=== PATIENT | female | born 1990 | race Caucasian/White ===

== ENCOUNTER → 2023-05-06 | Outpatient (CLI) | payer OTHER | LOC: MHCPAIN 08:24 | DX: M51.26 Other intervertebral disc displacement, lumbar region (principal); M47.817 Spondylosis without myelopathy or radiculopathy, lumbosacral region | CPT/HCPCS: G0463 ==

== ENCOUNTER → 2023-05-20 | Outpatient (CLI) | payer OTHER ==
[~2023-05-20] MED LIST: Atropine 1 MG/10 ML SYRINGE IV ONE; Glycopyrrolate 0.2 MG/ML 1 ML VIAL ONE; Iohexol 300 - 10 ML VIAL ONE; Lidocaine PF 2% (20 MG/ML) 2 ML VIAL ONE; ePHEDrine 50 MG/10 ML VIAL IV ONE
== END ==
LOC: MHCPAIN 12:44
DX: M54.16 Radiculopathy, lumbar region (principal)
CPT/HCPCS: J0461; J1100; Q9967

== ENCOUNTER → 2023-06-17 | Outpatient (CLI) | payer OTHER | LOC: MHCPAIN 09:41 | DX: M51.26 Other intervertebral disc displacement, lumbar region (principal); M47.817 Spondylosis without myelopathy or radiculopathy, lumbosacral region | CPT/HCPCS: G0463 ==

== ENCOUNTER → 2023-06-20 | Outpatient (CLI) | payer OTHER ==
[~2023-06-20] MED LIST changes: -Atropine 1 MG/10 ML SYRINGE IV ONE; -Glycopyrrolate 0.2 MG/ML 1 ML VIAL ONE; -ePHEDrine 50 MG/10 ML VIAL IV ONE
== END ==
LOC: MHCPAIN 08:40
DX: M54.16 Radiculopathy, lumbar region (principal)
CPT/HCPCS: J1100; Q9967